=== PATIENT | female | born 1980 | race African-American/Black ===

== ENCOUNTER 2017-02-20 05:58 | Inpatient (IN) | payer OTHER ==
[2017-02-20] VITALS (9 sets, daily range): BP systolic 82–96; BP diastolic 52–75; PULSE 47–70; RESP 18–20; Ht 165.1 cm; Wt 86.4 kg
[~2017-02-20] VITALS: Ht 165.1 cm; Wt 86.4 kg
[~2017-02-20 05:58] MED LIST: PREN1TAB49 PO
[2017-02-20] MEDS ORDERED: CEFAZOLIN 2 GM/50 ML (PMX) 50 ML IV SCH (06:30)
[2017-02-20] MEDS ORDERED: MISOPROSTOL 200 MCG TAB PR PRN ×2 (06:30→14:00)
[2017-02-20] MEDS ORDERED: OXYTOCIN 30 UNITS/LR 500 ML IV SCH (06:30)
[2017-02-20] MEDS ORDERED: CARBOPROST 250 MCG INJ IM PRN ×2 (06:30→14:00)
[2017-02-20] MEDS ORDERED: OXYTOCIN 30 UNITS/LR 500 ML IV PRN ×2 (06:30→14:00)
[2017-02-20] MEDS ORDERED: METHYLERGONOVINE 0.2 MG INJ IM PRN ×2 (06:30→14:00)
[2017-02-20 07:07] LABS: ADD SCAN DIFF NO
[2017-02-20 07:14] LABS: BASOPHILS % 0.6 % (0.0-2.0); EOSINOPHILS # 0.1 10^3/ul (0.0-0.5); EOSINOPHILS % 1.2 % (0.0-7.0); HEMATOCRIT 31.3 % (37.0-47.0); HEMOGLOBIN 10.3 g/dl (12.0-16.0); LYMPHOCYTES # 1.8 10^3/ul (0.8-2.9); MEAN CORPUSCULAR HGB CONC 32.9 g/dl (32.0-37.0); MEAN CORPUSCULAR VOLUME 94.3 fl (82.0-101.0); MEAN PLATELET VOLUME 11.7 fl (7.4-10.4); MONOCYTE # 0.5 10^3/ul (0.3-0.9); MONOCYTES % 6.8 % (0.0-11.0); NEUTROPHIL # 4.5 10^3/ul (1.6-7.5); NEUTROPHILS % 64.7 % (39.0-77.0); PLATELET COUNT 184 10^3/UL (140-415); RED BLOOD COUNT 3.32 10^6/ul (4.20-5.40); RED CELL DISTRIBUTION WIDTH 13.1 % (11.5-14.5)
[2017-02-20 07:22] LABS: INR 0.91; PROTIME 12.2 Sec (12.2-14.2)
[2017-02-20 07:23] LABS: PARTIAL THROMBOPLASTIN TIME 26.8 Sec (25.0-35.0)
[2017-02-20] MEDS: LACTATED RINGER'S 1,000 ML IV SCH ×2 (07:46→17:33)
[2017-02-20] MEDS ORDERED: ONDANSETRON 4 MG INJ ONE (08:09)
[2017-02-20] MEDS ORDERED: PHENYLephrine (100 MCG/ML) 5ML SYG ONE ×2 (08:09→09:49)
[2017-02-20] MEDS ORDERED: KETOROLAC 30 MG INJ ONE (08:09)
[2017-02-20] MEDS ORDERED: METOCLOPRAMIDE 10 MG INJ ONE (08:09)
[2017-02-20] MEDS ORDERED: morphine SULFATE/PF (10 MG/10 ML) INJ ONE (08:09)
[2017-02-20] MEDS ORDERED: DEXAMETHASONE 4 MG/ML 1 ML INJ ONE (08:09)
[2017-02-20] MEDS ORDERED: OXYTOCIN 10 UNIT INJ ONE (08:09)
[2017-02-20] MEDS ORDERED: CITRIC ACID/NA CITRATE 30 ML CUP PO ONE (08:30)
[2017-02-20] MEDS ORDERED: ONDANSETRON 4 MG INJ IV ONE (08:30)
[2017-02-20] MEDS ORDERED: ONDANSETRON 4 MG INJ IV PRN ×2 (09:30→14:00)
[2017-02-20] MEDS ORDERED: NALOXONE (0.4 MG/ML) INJ IV PRN (09:30)
[2017-02-20] MEDS ORDERED: morphine 2 MG INJ IV PRN ×2 (09:30)
[2017-02-20] MEDS ORDERED: ZOLPIDEM 5 MG TAB PO PRN ×2 (09:30→14:00)
[2017-02-20] MEDS ORDERED: HYDROmorphONE 1 MG/ML SYG IV PRN ×2 (09:30)
[2017-02-20] MEDS ORDERED: PROCHLORPERAZINE 10 MG INJ IV PRN (09:30)
[2017-02-20] MEDS: DIPHENHYDRAMINE 50 MG INJ IV PRN ×2 (10:38→23:23)
[2017-02-20] MEDS ORDERED: OXYCODONE/ACETAMINOPHEN (5/325) TAB PO PRN (14:00)
[2017-02-20] MEDS ORDERED: DIPHENHYDRAMINE 50 MG INJ IV PRN (14:00)
[2017-02-20] MEDS ORDERED: LANOLIN 7 GM TUBE TOP PRN (14:00)
[2017-02-20] MEDS: KETOROLAC 30 MG INJ IV PRN (16:10)
--- NOTE | 2017-02-20 16:11 | HP ---
Date/Time of Note Date/Time of Note DATE: 02/20/17 TIME: 16:07 OB - History Hx of Present Free Text/Dictation 36 y.o with x1 previous section here for elective section which waas scheduled by her OB with her penatal care was limited,late entry Estimated Due Date: Feb 27, 2017 : 2 Para: 1 Spontaneous : 0 Therapeutic : 0 Care: Limited Care Ultrasounds: Other Obstetrical Complications: None Past Family/Social History * Past Medical, Surgical, Family and Obstetric Histories reviewed from chart. Blood Type: A+ Rubella: immune RPR/VDRL: Negative GBS Status: Negative HBsAG: Unknown OB Admission Exam Vital Signs Vital Signs Vital Signs Date Time Temp Pulse Resp B/P Pulse Ox O2 Delivery O2 Flow Rate FiO2 02/20/17 14:45 98.0 53 20 83/74 Room Air Physical Exam HEENT: WNL Heart: Rhythm Normal Lungs: Clear, Equal Abdomen: WNL Extremities: Normal Reflexes: Normal Effacement: Other Membranes: Intact Amniotic Fluid: Unevaluable Heart Rate: 150's Accelerations: Accelerations Present Decelerations: No Decelerations Varibility: Moderate Contractions on Admission: >10 Minutes Apart Intensity: Mild Last 72 hours Lab Results CBC & BMP 02/20/17 07:00 OB Assessment/Plan Reason for admission: other (previous section) Plan: Section DONTA PHILIP MD Feb 20, 2017 16:11
[2017-02-20 16:45] LABS: BARBITURATES Negative (NEGATIVE); BENZODIAZEPINES Negative (NEGATIVE); CANNABINOIDS Negative (NEGATIVE); COCAINE Negative (NEGATIVE); OPIATES Positive (NEGATIVE)
[2017-02-20] MEDS: SENNA/DOCUSATE NA (8.6MG/50MG) TAB PO SCH (21:40)
[2017-02-21] MEDS: LACTATED RINGER'S 1,000 ML IV SCH ×3 (02:29→18:30)
[2017-02-21 03:42] VITALS: BP 97/55; PULSE 64; RESP 18
[2017-02-21 07:53] VITALS: BP 100/54; PULSE 64; RESP 18
[2017-02-21] MEDS: KETOROLAC 30 MG INJ IV PRN (07:53)
[2017-02-21 08:06] LABS: ADD SCAN DIFF NO
[2017-02-21 08:10] LABS: BASOPHILS % 0.3 % (0.0-2.0); EOSINOPHILS % 0.3 % (0.0-7.0); LYMPHOCYTES % 22.9 % (15.0-51.0); MEAN CORPUSCULAR HEMOGLOBIN 31.9 pg (29.0-33.0); MEAN CORPUSCULAR HGB CONC 33.3 g/dl (32.0-37.0); MEAN CORPUSCULAR VOLUME 95.8 fl (82.0-101.0); MEAN PLATELET VOLUME 11.6 fl (7.4-10.4); MONOCYTE # 0.7 10^3/ul (0.3-0.9); MONOCYTES % 7.6 % (0.0-11.0); NEUTROPHILS % 68.6 % (39.0-77.0); PLATELET COUNT 185 10^3/UL (140-415); RED BLOOD COUNT 3.13 10^6/ul (4.20-5.40); RED CELL DISTRIBUTION WIDTH 12.8 % (11.5-14.5); WHITE BLOOD COUNT 8.8 10^3/ul (4.8-10.8)
[2017-02-21] MEDS: SENNA/DOCUSATE NA (8.6MG/50MG) TAB PO SCH ×2 (10:21→20:09)
--- NOTE | 2017-02-21 12:53 | PN ---
Date/Time of Note Date/Time of Note DATE: 02/21/17 TIME: 12:50 OB Subjective Subjective Subjective ambulating well in nicu OB Objective Objective Objective vss afebrile hnh stable HEENT: WNL Heart: Rhythm Normal Lungs: Clear, Equal Abdomen: WNL Extremities: Normal Reflexes: Normal OB Assessment/Plan Other Assessment: stable pocs #1 Other plan: as ordered DONTA PHILIP MD Feb 21, 2017 12:53
--- NOTE | 2017-02-21 13:23 | OPR ---
DATE OF OPERATION: 02/20/2017 PREOPERATIVE DIAGNOSIS: Uterine at 39 weeks, with a previous section, for electi ve repeat section. POSTOPERATIVE DIAGNOSIS: Delivered male infant, 6 pounds 12 ounces, 's of 9 and 9. OPERATION PERFORMED: Repeat low transverse section. ANESTHESIA: Spinal. ANESTHESIOLOGIST: ESTIMATED BLOOD LOSS: Approximately 600 mL. PROCEDURE: Under proper induction of spinal anesthesia the patient was placed in the frog position. A Hunt catheter was introduced into the bladder under sterile condition and repositioned to supin e. The abdominal wall was prepped and draped in the usual aseptic manner. A transverse incision wa s made along the previous incisional scar. The scar tissue was excised. Incision was carried down through the subcutaneous tissue to the anterior recti fascia which was incised transversely for the length of the incision. A fascial flap was created with blunt and sharp dissection of the tendinous attachment upward and the 2 rectus muscles were split in the midline and the peritoneal cavity was entered. The low portion of the uterus was exposed, which was free of adhesions, and a transverse i ncision was made above the uterovesical reflection. The incision was carried down to the amniotic m embrane, which was ruptured, revealed clear amniotic fluid and a normal male infant was born from th e left occiput transverse position by using gentle traction with the Kiwi. The mouth and nose were c leaned and the cord was clamped and cut, handed to the respiratory care personnel for further care, after the delay of cord clamping. Cord blood was obtained. The placenta was removed manually. The cavity was completely explored after the uterus was exteriorized. The uterine incision was closed using 0 chromic catgut in continuous manner and a second layer, also using 0 chromic catgut in barbra nuous manner, thus imbricating the first layer of closure. No bleeder was noted. The uterus was re located in the abdominal cavity after irrigation was done and a sponge count taken, which was correc t. The incisional site was rechecked and no bleeding was noted. A piece of Surgicel laid on it and the parietal peritoneum was closed using 2-0 chromic catgut in continuous manner, muscle closed with 0 chromic catgut in continuous manner. Fascia was closed with #1 Vicryl in continuous manner in 2 segments. A piece of Surgicel was also laid on top of the muscle before the fascia was closed. The subcutaneous tissue was irrigated with water. This layer was approximated with 2-0 plain in continu ous manner after adequate hemostasis was secured. Skin was closed with Insorb and Steri-Strip appli ed. Pressure dressing was applied. Estimated blood loss was approximately 600 mL. The patient wit hstood the procedure and was sent to the recovery room in stable condition. Dictated By: JUAN M BUCIO/SUZETTE Conf#: [id number] DID#: [id number]
[2017-02-21] MEDS: IBUPROFEN 600 MG TAB PO SCH ×3 (13:34→23:32)
[2017-02-21 14:55] VITALS: BP 105/70; PULSE 68; RESP 16
[2017-02-21 19:30] VITALS: BP 107/69; PULSE 66; RESP 20
[2017-02-21] MEDS: OXYCODONE/ACETAMINOPHEN (5/325) TAB PO PRN (22:35)
[2017-02-22] MEDS: LACTATED RINGER'S 1,000 ML IV SCH (02:30)
[2017-02-22 03:08] VITALS: BP 119/64; PULSE 75; RESP 20
[2017-02-22] MEDS: IBUPROFEN 600 MG TAB PO SCH ×4 (05:39→23:16)
[2017-02-22 07:50] VITALS: BP 110/78; PULSE 63; RESP 18
[2017-02-22] MEDS: OXYCODONE/ACETAMINOPHEN (5/325) TAB PO PRN ×2 (07:50→21:10)
[2017-02-22] MEDS: SENNA/DOCUSATE NA (8.6MG/50MG) TAB PO SCH ×2 (09:00→21:09)
--- NOTE | 2017-02-22 10:36 | PN ---
Date/Time of Note Date/Time of Note DATE: 02/22/17 TIME: 10:35 OB Subjective Subjective Subjective doinf fine no c/o OB Objective Objective Objective vss afebrile abdomen soft wound dry lochia delfina calf neg OB Assessment/Plan Other Assessment: stable Other plan: d/s home in am DONTA PHILIP MD Feb 22, 2017 10:36
--- NOTE | 2017-02-22 13:23 | OPPN ---
Date/Time of Note Date/Time of Note DATE: 02/22/17 TIME: 13:23 Post-Anesthesia Notes Post-Anesthesia Note Activity: WNL Respiratory function: WNL Cardiovascular function: WNL Mental status: Baseline Pain reasonably controlled: Yes Hydration appropriate: Yes Nausea/Vomiting absent: Yes CELESTINO MONDRAGON MD Feb 22, 2017 13:23
[2017-02-22 15:41] VITALS: BP 110/73; PULSE 75; RESP 16
[2017-02-22 20:27] VITALS: BP 124/85; PULSE 65; RESP 18
[2017-02-23 03:47] VITALS: BP 105/75; PULSE 58; RESP 18
[2017-02-23] MEDS: IBUPROFEN 600 MG TAB PO SCH ×4 (05:43→23:54)
[2017-02-23 08:10] VITALS: BP 123/79; PULSE 75; RESP 16
[2017-02-23] MEDS: OXYCODONE/ACETAMINOPHEN (5/325) TAB PO PRN ×2 (08:10→14:16)
[2017-02-23] MEDS: SENNA/DOCUSATE NA (8.6MG/50MG) TAB PO SCH ×3 (08:10→23:54)
[2017-02-23] MEDS ORDERED: DIPHTH/TET/ACEL PERTUSS (ADULT) 0.5 ML VIAL IM* ONE (09:00)
--- NOTE | 2017-02-23 10:11 | PN ---
Date/Time of Note Date/Time of Note DATE: 02/23/17 TIME: 10:07 OB Subjective Subjective Subjective passing flatus no bowel movement OB Objective Objective Objective vss afebrile abdomen soft wound dry heaing ok lochia min calf no tenderness OB Assessment/Plan Other Assessment: stable rc/s #3 desie to stay one more day since baby in nicu Other plan: d/s home in am DONTA PHILIP MD Feb 23, 2017 10:11
[2017-02-23 17:00] VITALS: BP 116/84; PULSE 66
[2017-02-23 19:45] VITALS: BP 113/6; PULSE 60; RESP 18
[2017-02-24] MEDS: OXYCODONE/ACETAMINOPHEN (5/325) TAB PO PRN ×2 (00:25→12:57)
[2017-02-24 04:00] VITALS: BP 105/74; PULSE 56; RESP 18
[2017-02-24] MEDS: IBUPROFEN 600 MG TAB PO SCH ×2 (05:32→12:55)
[2017-02-24 08:20] VITALS: BP 109/74; PULSE 59; RESP 16
--- NOTE | 2017-02-24 13:18 | PD.PPDC ---
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
--- NOTE | 2017-02-24 13:20 | DS ---
Date/Time of Note Date/Time of Note DATE: 02/24/17 TIME: 13:19 Obstetrical Discharge Record Final Diagnosis Final Diagnosis: Term delivered Section Section: Repeat Complications Other Augmentation: No Induction: No Rupture of Membranes: No Condition on Discharge Physical Assessment Last Vitals: vss afebrile Voiding: Yes Bowel Movement: Yes Breast: Soft, non-tender Fundus: Firm Abdomen and Incision: healing ok abdomen soft Calf Tenderness: No Patient Condition: Stable DONTA PHILIP MD Feb 24, 2017 13:20
== END 2017-02-24 17:45 | disposition home or self-care (01) | DRG 766 ==
LOC: L-D 05:58 → PP1 13:14
PROVIDERS: ADMIT Obstetrics & Gynecology; ATTEND Obstetrics & Gynecology
PROC: 10D00Z1 Extraction of Products of Conception, Low, Open Approach (ICD-10-PCS; principal; 2017-02-20)
DX: O34.211 Maternal care for low transverse scar from previous cesarean delivery (principal); Z37.0 Single live birth; Z3A.39 39 weeks gestation of pregnancy
CPT/HCPCS: 80307; 85025; 85610; 85730; 86592; 86850; 86900; 86901; 90715; 94760; 99464; J0690; J1100; J1200; J1885; J2274; J2370; J2405; J2590; J2765; J7120